=== PATIENT | male | born 1960 | race Caucasian/White ===

== ENCOUNTER 2020-07-07 16:37 | Emergency (ER) | payer MEDICARE, OTHER ==
[~2020-07-07] VITALS: Ht 188 cm; Wt 96.2 kg
[2020-07-07 17:50] VITALS: BP 149/98
[2020-07-07] MEDS ORDERED: bacitracin 15gm ointment TP ONE (17:55)
[2020-07-07] MEDS ORDERED: TETanus/Pertussis (Acell)/Diphther VAC/PF (Tdap-Adult) 0.5ml syringe IMVAC ONE (17:55)
== END 2020-07-07 18:28 | disposition home or self-care (01) ==
LOC: ER 16:38
DX: S52.592A Other fractures of lower end of left radius, initial encounter for closed fracture (principal); S00.81XA Abrasion of other part of head, initial encounter; W18.39XA Other fall on same level, initial encounter; Y93.89 Activity, other specified; Y92.89 Other specified places as the place of occurrence of the external cause; Y99.8 Other external cause status
CPT/HCPCS: 29125; 70450; 70486; 72125; 73110; 90471; 90715; 99285